=== PATIENT | female | born 1975 | race Caucasian/White ===

== ENCOUNTER 2023-10-17 13:23 | Emergency (ER) | payer OTHER, SELFPAY ==
[2023-10-17] VITALS (14 sets, daily range): BP systolic 153–269; BP diastolic 90–139; PULSE 84–102; RESP 15–20; TEMP 36.6–36.8; O2SAT 93–97; BMI 47.4
--- NOTE | ~2023-10-17 | CT_ITS ---
CT ANGIOGRAM NECK WITH CONTRAST CT ANGIOGRAM BRAIN WITH CONTRAST CLINICAL INFORMATION: Elevated blood pressure. Left eye blurriness. COMPARISON: None available. TECHNIQUE: Test bolus sequences followed by intravenous administration 70 mL of Omnipaque 350. Helical imaging was performed in the axial plane from the thoracic inlet to the skull vertex. Delayed postcontrast imaging of the head was also performed. The data was processed at the sterile processing technologist workstation for generation of MIP sequences. Angled MIPs and volume rendered reformatted images were also generated at an offline 3D workstation under concurrent supervision. Stenoses are assessed in accordance with NASCET criteria unless otherwise indicated. This CT examination was performed using dose optimization techniques as appropriate, variously including the following: *Automated exposure control *Adjustment of mA and/or kV according to patient size (this includes techniques or standardized protocols for targeted exams where dose is matched to indication/reason for exam; i.e. extremities or head) *Use of iterative reconstruction technique FINDINGS: BRAIN: There is mild chronic microangiopathy. [There is no intracranial hemorrhage, hydrocephalus, extra-axial surface collection, midline shift, or other herniation pattern. Benedict to white matter differentiation is diffusely maintained without evidence of an evolved acute territorial infarct. The basilar cisterns are preserved. No significant soft tissue abnormality. No acute osseous abnormality. The paranasal sinuses and the mastoid air cells are well aerated.] CERVICAL SOFT TISSUES AND LUNG APICES: Imaged upper lungs are clear. There is cervical spondylosis. Enlarged heterogeneous multinodular thyroid gland with the largest nodule within the left thyroid lobe possibly measuring up to 2 cm in size which can be further assessed with thyroid ultrasound. NECK CTA: [There is a classic 3 vessel configuration of the aortic arch. Proximal arch vessels are non-stenotic. The left vertebral artery is dominant. No significant ostial stenosis is visualized on either side. Both vertebral arteries are widely patent throughout their extracranial cervical course. The common carotid arteries are widely patent. Indeterminate age arterial dissection involving the left internal carotid artery at the C1-C2 level with an associated small 2 mm pseudoaneurysm. The true lumen remains widely patent. BRAIN CTA: [There is normal opacification of major intracranial arteries. No focal flow-limiting stenosis nor discrete proximal large artery occlusion. No aneurysm. Timing of the contrast bolus allows assessment of the major dural venous sinuses, which all opacify normally] CT/CT angio head neck IMPRESSION: - Indeterminate age arterial dissection involving the left cervical internal carotid artery at the C1-C2 level with an associated small 2 mm pseudoaneurysm. The true lumen remains widely patent. T1/T2 fat-suppressed imaging of the neck could be obtained as clinically indicated. - No acute intracranial findings. Mild chronic microangiopathy. No large vessel occlusions intracranially. - Enlarged heterogeneous multinodular thyroid gland with the largest nodule within the left thyroid lobe possibly measuring up to 2 cm in size which can be further assessed with thyroid ultrasound.
--- NOTE | 2023-10-17 14:07 | ED.EYEPROB ---
HPI - Eye Problem General Chief complaint: Eye Problems Stated complaint: l eye issue Time Seen by Provider: 10/17/23 14:54 History of Present Illness HPI Narrative: The patient is a 48-year-old woman without significant past medical history who has been having problems with vision in her left eye for about 3 weeks. She was seeing some occasional flashing in her vision as well. She feels the vision is less good and that I but not terrible. She arranged a telemedicine visit and was advised to go to an urgent care. She went to an urgent care and was advised to see an eye doctor. Today she went to [facility] [place] where there was concern for papillema and she was referred to the emergency room. She has had some intermittent headaches but says this is not unusual for her. On arrival here she was found to be hypertensive. She says that she has had high blood pressure readings in the past but never as high as today. There has been no chest pain, shortness of breath, fever, sweats, chills. The patient is a former smoker. She has not smoked for many years. The patient used to live in [place]. She has lived in this area for about a year and a half. She does not have a primary care doctor. She says that she has had some high blood pressure readings in the past but has never been formally diagnosed with hypertension and she has never been prescribed medications for high blood pressure. She reports she was hospitalized about 6 or 7 years ago for a case of necrotizing fasciitis to her abdominal skin. She said that she had had a small skin abscess that unexpectedly progressed to necrotizing fasciitis Related Data Allergies Allergy/AdvReac Type Severity Reaction Status Date / Time No Known Allergies Allergy Verified 10/17/23 14:16 Review of Systems Review of Systems: Yes all other systems are reviewed and are negative [facility] Social History Social History Smoked in Last 30 Days: No Use of substances other than those prescribed or required for medical reasons: No Advance Directives: No Patient : No Physical Exam Vital Signs: Vital Signs: Last Vital Signs Temp 98.2 F 10/17/23 19:45 Pulse 94 10/17/23 20:29 Resp 16 10/17/23 20:29 BP 181/100 H 10/17/23 20:29 Pulse Ox 93 10/17/23 20:29 O2 Del Method Room Air 10/17/23 20:29 BMI result Body Mass Index 47.4 Const: Other: The patient is awake, alert, pleasant, cheerful, not in obvious distress. HEENT: Other: The face is symmetrical. ?Mucous membranes moist. Eyes: Other: Pupils are round equal and reactive to light, extraocular movements are intact, visual herron are intact to confrontation. The vision in her right eye is 20/50. The revision in her left eye is 20/40. Neck: Other: No JVD. No swelling. Resp: Effort & Inspection: normal respiratory effort Auscultation: clear to auscultation bilaterally Cardio: Rate: regular rate Rhythm: regular rhythm Heart sounds: S1 normal heart sound present and S2 normal heart sound present Neuro: Other: The patient is awake, alert, appropriate. Demeanor is nontoxic. Eye movements are intact. Visual herron are intact to confrontation. Face is symmetrical. Speech is clear. Extremities have normal strength and coordination. Gait is normal. Extrem: Other: No peripheral edema Course Course Course Narrative: This is an RME: Additional HPI, ROS, PE not included below will be deferred to primary provider. This is a [id number], with no known medical problems, presenting to the emergency department with complaints of left eye blurriness x 3 days, intermittent headaches. She went to the eye doctor at [facility] where she had papilloedema in her left eye and was sent here for further evaluation. Blood pressure 237/135, repeat on right arm to 37/133. Brought patient back to main emergency department given hypertensive emergency. Plan: Labs, CTA head and neck Medications Administered Generic Name Dose Route Start Last Admin Trade Name Freq PRN Reason Stop Dose Admin Heparin Sodium/Sodium Chloride 25,000 unit in 250 mls @ 0 mls/hr 10/17/23 18:15 10/17/23 19:08 Heparin Sodium,Porcine/1/2ns IVCONT 8.38 units/kg/hr .Q0M JOSH 10 mls/hr Administration Protocol Per Protocol Nicardipine HCl 25 mg/ Sodium 260 mls @ 0 mls/hr 10/17/23 18:30 10/17/23 19:33 Chloride IVCONT 7.5 mg/hr .Q0M JOSH 78 mls/hr Titration Protocol Per Protocol Discontinued Medications Generic Name Dose Route Start Last Admin Trade Name Freq PRN Reason Stop Dose Admin Atorvastatin Calcium 80 mg 10/17/23 18:00 10/17/23 19:10 Atorvastatin Calcium 80 Mg Tablet PO 10/17/23 18:01 80 mg ONCE ONE Administration Iohexol 70 ml 10/17/23 16:25 10/17/23 16:25 Iohexol 350 Mg/Ml 75 Ml Infus..Btl IV 10/17/23 16:26 70 ml ONCE ONE Administration Labetalol HCl 10 mg 10/17/23 16:24 10/17/23 16:32 Labetalol Hcl 100 Mg/20 Ml Vial IVPUSH 10/17/23 16:25 10 mg ONCE ONE Administration Labetalol HCl 10 mg 10/17/23 17:21 10/17/23 17:33 Labetalol Hcl 100 Mg/20 Ml Vial IVPUSH 10/17/23 17:22 10 mg ONCE ONE Administration Medical Decision Making Medical Decision Making [facility] Narrative: Patient is an ordinarily healthy 48-year-old woman who has had left eye symptoms for 2-3 weeks. Today she was seen at an optometry office and was found to have papilledema of the left eye and was referred to the emergency room. Here in the emergency room the patient clinically looks very well although she has significantly elevated blood pressures. Dr. Vuong of Ophthalmology was able to see the patient and confirm the presence of decreased vision in the left eye, disc edema, and red desaturation. He further said there was no obvious afferent pupillary defect. He did see a small flame hemorrhage. He considered the patient at risk for idiopathic intracranial hypertension and recommended neuroimaging to exclude a tumor followed by a spinal tap at some point in the next couple of days to assess intracranial pressure. The patient will be signed out to the oncoming emergency physician at change of shift. -I received sign-out from my colleague Dr. Hogan -patient's current blood pressure is 269/138, patient denies chest pain or shortness of breath, no headache, other than the visual disturbance that she has had for days, no changes. -patient was given a dose of labetalol 10 mg IV, patient's blood pressure dropped to 207/111 -patient receiving a 2nd dose of labetalol 10 mg. At this time, patient has received a total of 20 mg IV -I discussed the CTA scan with Dr Rizzo from [facility]. 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 Stallworth from vascular surgery. Has no history of trauma. Dissection likely secondary to chronic very high blood pressure, patient will need heparin and formal anticoagulation afterwards -we are still having trouble controlling the patient's blood pressure. Despite 20 mg of IV labetalol, patient is still significantly hypertensive, patient's blood pressure 220 systolic -It is very unlikely that any other BP meds will help to control the patient's blood pressure. I discussed the patient with Dr. Alvarez and we'll start nicardipine drip and pt will need ICU care. -also, I discussed the patient with Dr. Stallworth again, it would be best to transfer the patient to a tertiary care center where interventional Neurology is available -we tried transferring the patient to our local hospitals in [place]. However, all are closed for ICU transfers, including [facility] and [facility]. -patient was accepted by Dr. Bucio from the intensive care unit at [facility] in [facility] -patient has heparin running, Cardene at 7.5 milligrams/hour, current blood pressure 181/100, heart rate 94, oxygen saturation 93% on room air. Other than the blurry vision that has been present for 5 days, patient does not have any new symptoms including chest pain headache or shortness of breath. -patient will likely need a lumbar puncture as well which we could not do since the patient was not stable enough due to the high blood pressure -a CD has been burned with the patient's imaging -patient and are agreeable with the transfer -patient's nurse will call report, patient will be transferred via ATLS Differential Diagnosis Differential Diagnoses: The differential diagnosis associated with the presentation includes (Papilledema, CVA, carotid artery dissection, hypertensive emergency) Admission/Observation Consideration of admission/observation: Escalation of care including admission/observation considered Consult Healthcare Provider Management of the patient was discussed with: Hospitalist and Core Fitter Lab Data [facility] Lab Attestation statement: I reviewed the patient's lab results. 10/17/23 15:01 10/17/23 15:01 Labs: Lab Results 10/17/23 10/17/23 Range/Units 15:01 16:37 WBC 8.8 (4.8-10.8) X10*3/uL RBC 4.88 (4.20-5.50) X10*6/uL Hgb 9.9 L (12.0-16.0) g/dl Hct 34.0 L (37.0-47.0) % MCV 69.7 L (80.0-98.0) fL MCH 20.3 L (27.0-33.0) pg MCHC 29.1 L (31.0-35.0) g/dl RDW 18.9 H (11.0-16.0) % Plt Count 214 (160-400) X10*3/uL MPV Not Reportable Immature Gran % (Auto) 0.3 (0.0-0.4) % Neut % (Auto) 67.2 (45-73) % Lymph % (Auto) 21.7 (20-40) % Mayes % (Auto) 6.5 (2-11) % Eos % (Auto) 3.4 (0-4) % Baso % (Auto) 0.9 (0-2) % Lymph # (Auto) 1.9 (1.2-4.9) X10*3/uL Mayes # (Auto) 0.6 (0.1-1.2) X10*3/uL Eos # (Auto) 0.3 (0.0-0.4) X10*3/uL Baso # (Auto) 0.1 (0.0-0.2) X10*3/uL Abs Immat Gran (auto) 0.03 (0.00-0.03) X10*3/uL Absolute Neuts (auto) 5.9 (2.0-8.3) x10*3/uL Absolute Nucleated RBC 0.000 (0.0-0.012) X10*3/uL Nucleated RBC % (auto) 0.0 (0.0-0.2) /100WBC Smear Tech's Comments VERIFIED PT 11.4 (11.1-13.3) SEC INR 0.9 (0.9-1.1) APTT 27.9 (26.0-36.4) SEC Sodium 142 (135-145) mmol/L Potassium 3.4 (3.3-5.1) mmol/L Chloride 108 (96-108) mmol/L Carbon Dioxide 26 (22-29) mmol/L Anion Gap 11 L (12-20) BUN 15 (9-16) mg/dL Creatinine 0.88 (0.5-1.4) mg/dL Estim Creat Clear Calc 93.0 Estimated GFR > 60 Random Glucose 114 (60-115) mg/dL Calcium 9.5 (8.4-10.2) mg/dL Total Bilirubin 0.3 (0.0-1.0) mg/dL Direct Bilirubin 0.2 (0.0-0.5) mg/dL AST 16 (5-31) U/L ALT 16 (0-31) U/L Alkaline Phosphatase 91 (39-117) U/L Troponin I High Sens 6.4 (<3.5-17.0) ng/L B-Natriuretic Peptide 39 (<100) pg/mL Total Protein 7.3 (6.5-8.0) g/dL Albumin 4.1 (3.5-5.0) g/dL Radiology Impression Discussion of test interpretation with radiology: I have reviewed the radiologist's reading. Radiologist Impression: BRAIN: There is mild chronic microangiopathy. [There is no intracranial hemorrhage, hydrocephalus, extra-axial surface collection, midline shift, or other herniation pattern. Benedict to white matter differentiation is diffusely maintained without evidence of an evolved acute territorial infarct. The basilar cisterns are preserved. No significant soft tissue abnormality. No acute osseous abnormality. The paranasal sinuses and the mastoid air cells are well aerated.] CERVICAL SOFT TISSUES AND LUNG APICES: Imaged upper lungs are clear. There is cervical spondylosis. Enlarged heterogeneous multinodular thyroid gland with the largest nodule within the left thyroid lobe possibly measuring up to 2 cm in size which can be further assessed with thyroid ultrasound. NECK CTA: [There is a classic 3 vessel configuration of the aortic arch. Proximal arch vessels are non-stenotic. The left vertebral artery is dominant. No significant ostial stenosis is visualized on either side. Both vertebral arteries are widely patent throughout their extracranial cervical course. The common carotid arteries are widely patent. Indeterminate age arterial dissection involving the left internal carotid artery at the C1-C2 level with an associated small 2 mm pseudoaneurysm. The true lumen remains widely patent. BRAIN CTA: [There is normal opacification of major intracranial arteries. No focal flow-limiting stenosis nor discrete proximal large artery occlusion. No aneurysm. Timing of the contrast bolus allows assessment of the major dural venous sinuses, which all opacify normally] CT/CT angio head neck IMPRESSION: - Indeterminate age arterial dissection involving the left cervical internal carotid artery at the C1-C2 level with an associated small 2 mm pseudoaneurysm. The true lumen remains widely patent. T1/T2 fat-suppressed imaging of the neck could be obtained as clinically indicated. - No acute intracranial findings. Mild chronic microangiopathy. No large vessel occlusions intracranially. - Enlarged heterogeneous multinodular thyroid gland with the largest nodule within the left thyroid lobe possibly measuring up to 2 cm in size which can be further assessed with thyroid ultrasound. Critical Care Time Critical Care Time Critical Care Time: Yes Total Critical Care Time: 120 Attestation: I have personally provided critical care time. Time includes review of lab data, radiology results, discussion with consultants, and monitoring for potential decompensation. Intervention performed as documented. Discharge Plan Discharge Clinical Impression: Papilledema of left eye, Carotid artery dissection, Hypertensive emergency Patient Disposition: [facility] Transfer Details: [facility], ICU, Dr. Bucio
[2023-10-17 15:11] LABS: Basophils Absolute Auto 0.1 X10*3/uL (0.0-0.2); Basophils Percent Auto 0.9 % (0-2); Eosinophils Absolute Auto 0.3 X10*3/uL (0.0-0.4); Eosinophils Percent Auto 3.4 % (0-4); Hemoglobin 9.9 g/dl (12.0-16.0); Imm Gran Abs Auto 0.03 X10*3/uL (0.00-0.03); Imm Gran Pct Auto 0.3 % (0.0-0.4); Lymphocytes Absolute Auto 1.9 X10*3/uL (1.2-4.9); Lymphocytes Percent Auto 21.7 % (20-40); MANUAL DIFF FLAG SCAN; Mean Corpuscular HGB Conc 29.1 g/dl (31.0-35.0); Mean Corpuscular Hemoglobin 20.3 pg (27.0-33.0); Mean Corpuscular Volume 69.7 fL (80.0-98.0); Monocytes Absolute Auto 0.6 X10*3/uL (0.1-1.2); Monocytes Percent Auto 6.5 % (2-11); Neutrophils Absolute Auto 5.9 x10*3/uL (2.0-8.3); Neutrophils Percent Auto 67.2 % (45-73); Red Blood Count 4.88 X10*6/uL (4.20-5.50); Red Cell Distribution Width 18.9 % (11.0-16.0); SCAN SMEAR FLAG 1
[2023-10-17 15:12] LABS: PLT ABN DIST 1
[2023-10-17 15:25] LABS: Alanine Aminotransferase 16 U/L (0-31); Albumin Level 4.1 g/dL (3.5-5.0); Alkaline Phosphatase 91 U/L (39-117); Anion Gap 11 (12-20); Aspartate Amino Transferase 16 U/L (5-31); Bilirubin Direct 0.2 mg/dL (0.0-0.5); Bilirubin Total 0.3 mg/dL (0.0-1.0); Blood Urea Nitrogen 15 mg/dL (9-16); Calcium 9.5 mg/dL (8.4-10.2); Carbon Dioxide 26 mmol/L (22-29); Chloride 108 mmol/L (96-108); Estimated Glomerular Filt Rate > 60; Glucose Random 114 mg/dL (60-115); Potassium 3.4 mmol/L (3.3-5.1); Sodium 142 mmol/L (135-145); Total Protein 7.3 g/dL (6.5-8.0)
[2023-10-17 15:37] LABS: Platelet Count 214 X10*3/uL (160-400); SLIDE REVIEW VERIFIED; White Blood Count 8.8 X10*3/uL (4.8-10.8)
[2023-10-17] MEDS: iohexoL 350 MG/ML 75 ML INFUS..BTL 70 ML IV (16:25)
--- NOTE | 2023-10-17 16:26 | PC.NURSE ---
PT SENT OFF UNIT TO OPHTHOMOLOGY OFFICE AT [address] WITH MD CISNEROS pt off unit from 1500 to 1600.
[2023-10-17] MEDS: Labetalol HCL 100 MG/20 ML VIAL 10 MG IVPUSH ×2 (16:32→17:33)
[2023-10-17 16:49] LABS: INTERNATIONAL NORM RATIO 0.9 (0.9-1.1); Prothrombin Time 11.4 SEC (11.1-13.3)
--- NOTE | 2023-10-17 16:51 | ECG_ITS ---
Test Reason : GENERAL MEDICAL Blood Pressure : / mmHG Vent. Rate : 084 BPM Atrial Rate : 084 BPM P-R Int : 212 ms QRS Dur : 096 ms QT Int : 404 ms P-R-T Axes : 054 004 101 degrees QTc Int : 477 ms Sinus rhythm with 1st degree A-V block Moderate voltage criteria for LVH, may be normal variant ( R in aVL , Jaun product ) Anterior infarct , age undetermined ST & T wave abnormality, consider lateral ischemia Abnormal ECG No previous ECGs available Referred By: Tex Hogan Electronically Signed By:Jose Garcia
[2023-10-17 16:52] LABS: Partial Thromboplastin Time 27.9 SEC (26.0-36.4)
[2023-10-17 17:09] LABS: B Type Natriuretic Peptide 39 pg/mL (<100); Troponin-I High Sensitivity 6.4 ng/L (<3.5-17.0)
[2023-10-17] MEDS: niCARdipine HCL 25 MG in 0.9 % Sodium Chloride 250 ML 52 MG IVCONT (19:07)
[2023-10-17] MEDS: Heparin Sodium,Porcine/1/2NS 25,000 UNIT/250 ML IV.SOLN 10 UNIT IVCONT (19:08)
[2023-10-17] MEDS: Atorvastatin Calcium 80 MG TABLET PO (19:10)
--- NOTE | 2023-10-17 19:32 | PC.NURSE ---
Pt ambulatory to restroom with steady gait
--- NOTE | 2023-10-17 20:30 | PC.NURSE ---
Pt updated on POC. Denies any pain or complaints at this time.
--- NOTE | 2023-10-17 20:43 | PC.NURSE ---
Report attempt at this time to [facility]. ict developer not notified of pt yet. Will attempt report at a later time.
--- NOTE | 2023-10-17 21:27 | PC.NURSE ---
Report to Laura ADAME at [facility] in [place].
--- NOTE | 2023-10-17 21:30 | PC.NURSE ---
Report to Stewart slater. Pt to [facility].
== END 2023-10-17 21:35 | disposition short-term general hospital (02) ==
PROVIDERS: Physician Assistant Medical; Emergency Provider Emergency Medicine
DX: H54.62 Unqualified visual loss, left eye, normal vision right eye (principal); H47.10 Unspecified papilledema; I44.0 Atrioventricular block, first degree; I16.0 Hypertensive urgency; Z79.899 Other long term (current) drug therapy
CPT/HCPCS: 36415; 70496; 70498; 80048; 80076; 83880; 84484; 85025; 85610; 85730; 93005; 96365; 96366; 96375; 96376; 99285; J1644; J1920; J2404; Q9967

== ENCOUNTER → 2023-10-17 16:51 | Outpatient (BNV) | payer OTHER, SELFPAY | PROVIDERS: Emergency Provider Emergency Medicine; Visit Provider Internal Medicine Cardiovascular Disease | DX: I44.0 Atrioventricular block, first degree (principal); R94.31 Abnormal electrocardiogram [ECG] [EKG] | CPT/HCPCS: 93010 ==

== ENCOUNTER 2024-05-07 10:28 | Outpatient (REF) | payer OTHER, SELFPAY ==
--- NOTE | ~2024-05-07 | MM_ITS ---
EXAMINATION: MM SCREENING DIGITAL BREAST TOMOSYNTHESIS, BILATERAL CLINICAL INFORMATION: Screening. Asymptomatic. COMPARISON: Mammography: This study is compared with prior exams dating back to 2018. TECHNIQUE: Digital breast tomosynthesis is performed in both the craniocaudal and mediolateral oblique views along with computer-aided detection (CAD). Synthesized 2D images are generated from the tomosynthesis. FINDINGS: There are scattered areas of fibroglandular density (ACR BI-RADS breast composition Category b). There are no significant masses, abnormal calcifications, or other abnormalities. MM/MM tomosynthesis screening BI IMPRESSION: No mammographic evidence of malignancy. ASSESSMENT: BI-RADS BI-RADS 1 - Negative RECOMMENDATION: Routine annual mammography screening. 1 year F/U This examination should not preclude the clinical evaluation of a suspicious palpable abnormality. This patient's information was entered into a reminder system with a target due date for their next mammogram. Electronically signed by: Nory Higuera MD 06/06/2024 02:42 PM EDT
== END 2024-05-07 10:29 | disposition home or self-care (01) ==
LOC: HO.MAMMO 10:28
PROVIDERS: PCP Physician Assistant Medical; Visit Provider Physician Assistant Medical
DX: Z12.31 Encounter for screening mammogram for malignant neoplasm of breast (principal)
CPT/HCPCS: 77063; 77067

== ENCOUNTER → 2024-05-07 10:45 | Outpatient (BNV) | payer OTHER, SELFPAY | PROVIDERS: PCP Physician Assistant Medical; Visit Provider Radiology Diagnostic Radiology | DX: Z12.31 Encounter for screening mammogram for malignant neoplasm of breast (principal) | CPT/HCPCS: 77063; 77067 ==

== ENCOUNTER 2024-05-18 07:56 | Outpatient (AMB) | payer OTHER, SELFPAY ==
--- OUTSIDE RECORDS SUMMARY | 2024-05-18 07:58 | XMS_ITS | Continuity of Care Document ---
Author Organization [facility] Address [address], [address], [address] [place] [id number] Care Team Providers [employer] Artistic Director Name Role Phone Jarvis Regalado Primary Care Physician Encounter [facility] Date(s): 01/01/24 - 01/31/24 [facility] [address], [address] [place] [id number]- us Patient Care team information Care Team Personnel Name: Jarvis Regalado Position: S Outreach Member Role: PCP Address: Address: [facility][note 3] [place] [facility] [address] [place], [place] [id number]
--- NOTE | 2024-05-18 08:11 | MHC.OFFVISWM ---
Intake Visit Reasons: TV Lap Band Removal Consult *SEE COMMENTS* Allergies No Known Allergies Allergy (Verified 05/18/24 08:11) Medication List - Last Reconciled 05/18/24 by Javy Wilson MD lisinopril 40 mg PO DAILY metoprolol succinate ER 25 mg PO BID HPI HPI TV Lap Band Removal Consult *SEE COMMENTS*: Details: Start time: 8.00am, End time: 8.45am ?I spent 40 minutes speaking with the patient on the phone plus an additional 5 minutes reviewing and updating records for a total of 45 minutes HPI Comments Details: Has a lap band. Complains of vomiting at least once a week and pain at the port site with certain activities and bending over Wants to have the band removed PFSH Medical History (Updated 05/18/24 @ 08:37 by Javy Wilson MD) Necrotizing fasciitis DJD (degenerative joint disease) GERD (gastroesophageal reflux disease) Hypertension Morbid obesity Surgical History (Updated 05/18/24 @ 08:39 by Javy Wilson MD) S/P debridement Hx of laparoscopy Previous section Hx of laparoscopic gastric banding Telehealth Telehealth Telehealth Platform: Telephone Location of provider rendering services: practice address Location of patient: address on file Patient Identification confirmed using: Name, : Yes Telehealth method: voice only Patient verbally consented to treatment: Yes Patient verbally consented to billing insurance company: Yes Patient informed of any privacy concerns related to visit: Yes Minutes spent on Phone/Video with Pt.: 45 Assessment & Plan Assessment & Plan (1) Morbid obesity: Code(s): E66.01 - Morbid (severe) obesity due to excess calories Category: Medical Plan: 1. Plan for upper endoscopy this to rule out band erosion. Risks of bleeding and perforation were discussed with the patient and she is in agreement with the plan 2. Plan for laparoscopic band removal on Saturday06/02/24. We discussed the possibility of conversion to open surgery, bleeding, or postop infection. Most likely it will be same day surgery but depending on the intraoperative findings, she may stay overnight. Patient is in agreement with the plan Orders: Orders Vitamin B1 Today R10.9 - Unspecified abdominal pain Lipid Panel Today R10.9 - Unspecified abdominal pain Vitamin B12 Today R10.9 - Unspecified abdominal pain C Reactive Protein Today R10.9 - Unspecified abdominal pain Vitamin D 25-OH Total Today R10.9 - Unspecified abdominal pain IRON PROFILE Today R10.9 - Unspecified abdominal pain Insulin Today R10.9 - Unspecified abdominal pain ECG 12 lead EKG Today R10.9 - Unspecified abdominal pain XR chest 2V Today R10.9 - Unspecified abdominal pain, Z98.84 - Bariatric surgery status Comprehensive Met. Panel Today R10.9 - Unspecified abdominal pain TSH reflex Free T4 Today R10.9 - Unspecified abdominal pain Vitamin A Today R10.9 - Unspecified abdominal pain Hemoglobin A1c Today R10.9 - Unspecified abdominal pain Prothrombin Time INR Today R10.9 - Unspecified abdominal pain Type and Screen Today R10.9 - Unspecified abdominal pain Partial Thromboplastin Time Today R10.9 - Unspecified abdominal pain Complete Blood Count Auto Diff Today R10.9 - Unspecified abdominal pain Ferritin Today R10.9 - Unspecified abdominal pain Zinc Today R10.9 - Unspecified abdominal pain
== END 2024-05-18 08:45 | disposition home or self-care (01) ==
LOC: HO.HBS 07:56
PROVIDERS: PCP Physician Assistant Medical; Visit Provider Surgery
DX: E66.01 Morbid (severe) obesity due to excess calories (principal)
CPT/HCPCS: 99204

== ENCOUNTER → 2024-05-18 07:56 | Outpatient (BNVA) | payer OTHER, SELFPAY | PROVIDERS: PCP Physician Assistant Medical; Visit Provider Surgery ==

== ENCOUNTER 2024-05-19 15:09 | Outpatient (AMB) | payer OTHER, SELFPAY ==
--- NOTE | 2024-05-19 15:18 | A.OFFVIS_ITS ---
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 Patient describes pain to palpation of both wrists. Reports numbness and tingling on the dorsal aspect of the left hand as well as numbness on the thumbs and index fingers. Denies doing physical therapy or trying braes. Denies any prior injuries or surgeries to the hands. Patient has not had EMG done. Allergies No Known Allergies Allergy (Verified 05/19/24 15:19) HPI HPI TAX EXAMINING TECHNICIAN- B/L wrist pain: Details: Linda is a 49 year old left hand dominant woman who presents with complaints of bilateral wrist pain & numbness. Her chief complaint is of numbness in her hands, primarily in the dorsal aspect of her left hand & her bilateral thumbs & index fingers, L>R. Symptoms intermittent but daily, worse with activities. She complains of pain in her bilateral wrists when they are stuck by anything. She denies any prior treatment options. She denies every having a NCS done. She is scheduled for a lap band removal on 06/02/24. [facility] Medical History (Updated 05/19/24 @ 15:55 by Petar Friedman) Necrotizing fasciitis DJD (degenerative joint disease) GERD (gastroesophageal reflux disease) Hypertension Morbid obesity Surgical History (Updated 05/18/24 @ 08:39 by Javy Wilson MD) S/P debridement Hx of laparoscopy Previous section Hx of laparoscopic gastric banding Social History (Updated 05/19/24 @ 15:26 by YULIANA Velazquez) Current occupational status: employed Current occupation: lt handed, human resources Review of Systems Const All systems reviewed & are unremarkable except as noted in HPI and below Physical Exam Vital Signs: BMI result Body Mass Index 45.2 Const General: cooperative, healthy appearing and no acute distress Orientation/consciousness: patient oriented x3 HEENT Head: Yes normocephalic and Yes atraumatic Eyes EOM: EOMs intact bilaterally Resp Effort & Inspection: normal respiratory effort and able to speak in complete sentences Cardio Jugular venous distension: no JVD Skin General skin exam: turgor normal Rashes: no rashes Neuro General: patient oriented x3 Extrem Other: Evaluation of Bilateral Upper Extremity: The patient is alert, oriented, and in no acute distress Neuro: Median, Ulnar, Radial nerves motor and sensory intact and sensation is normal to the tips of all digits No thenar or intrinsic wasting Good APB muscle belly firing and good finger cross Vascular: Cap refill brisk ROM: She can amke a fist and extend all her digits Skin: No lacerations or abrasions. General: No Ecchymosis. No Erythema or evidence of infection. Psych Appearance: grossly normal Affect: normal affect Attitude: cooperative Assessment & Plan Assessment & Plan (1) Bilateral hand numbness: Code(s): R20.0 - Anesthesia of skin Category: Medical Plan Assessment & Plan: 1. Bilateral Hand numbness, L?R In the median nerve distribution Symptoms intermittent, but daily, worse with activities such as using a mouse or driving I educated her about carpal tunnel syndrome I ordered a NCS to assess for peripheral nerve compression She will follow up when completed for review Scribed for Toyin White MD by Petar Friedman, medical assisting instructor, on 05/19/24 at 3:50 PM, EST. Orders: Orders NE nerve conduction velocity 05/19/24 R20.0 - Anesthesia of skin, R20.2 - Paresthesia of skin Coding Level of Care Code New Pt Level 3 (44265) Diagnoses Bilateral hand numbness R20.0
[2024-05-19 15:19] VITALS: BMI 45.2
== END 2024-05-19 15:57 | disposition home or self-care (01) ==
PROVIDERS: Visit Provider Orthopaedic Surgery
DX: M25.531 Pain in right wrist (principal); M25.532 Pain in left wrist; R20.0 Anesthesia of skin
CPT/HCPCS: 99203

== ENCOUNTER → 2024-05-19 15:09 | Outpatient (BNVA) | payer OTHER, SELFPAY | PROVIDERS: Visit Provider Orthopaedic Surgery ==

== ENCOUNTER 2024-05-21 08:09 | Day surgery (SDC) | payer OTHER, SELFPAY ==
--- NOTE | 2024-05-19 08:40 | P.CONAN_ITS ---
Documented by User: Dimple Rainey NP 05/19/24 08:40 HPI - Anesthesia Eval Consult details Narrative: 49yo F for Upper Endoscopy PMFSH Active Problems Active Problems: All Active Problems Hx of laparoscopic gastric banding (Acute) Abdominal pain (Acute) Vomiting (Acute) DJD (degenerative joint disease) (Acute) GERD (gastroesophageal reflux disease) (Acute) Hypertension (Acute) Morbid obesity (Acute) Past Medical History Medical History Necrotizing fasciitis DJD (degenerative joint disease) GERD (gastroesophageal reflux disease) Hypertension Morbid obesity Surgical History Surgical History Hx of tubal ligation S/P debridement Hx of laparoscopy Previous section Hx of laparoscopic gastric banding Social History Social History Are you a primary insurance healthcare consultant to a significant other at home: No Do you presently have visiting nurse or other home services: No Patient Tobacco Use Status: Former Tobacco user Have you been hit, kicked, punched, or otherwise hurt by someone within the past year? If so, by whom?: No Are you DNR?: No Advance Directives: No Advance Directives Information Provided: Yes Nutrition Risks: No Nutritional Risk Current occupational status: employed Current occupation: lt handed, human resources Meds Allergies Allergy/AdvReac Type Severity Reaction Status Date / Time No Known Allergies Allergy Verified 05/21/24 08:15 Home Medications ?Medication ?Instructions ?Recorded ?Confirmed ?Last Taken ?Type lisinopril 40 mg tablet 40 mg PO DAILY 05/18/24 05/21/24 05/20/24 History metoprolol succinate 25 mg 25 mg PO BID 05/18/24 05/21/24 05/20/24 History tablet,extended release 24 hr Assessment and Plan Assessment Anesthesia Assessment: Chart Reviewed Documented by User: Padma Casey MD 05/21/24 09:40 PMFSH Active Problems Active Problems: All Active Problems Hx of laparoscopic gastric banding (Acute) Abdominal pain (Acute) Vomiting (Acute) DJD (degenerative joint disease) (Acute) GERD (gastroesophageal reflux disease) (Acute) Hypertension (Acute) Morbid obesity (Acute) Denies JOE Past Medical History Medical History Necrotizing fasciitis DJD (degenerative joint disease) GERD (gastroesophageal reflux disease) Hypertension Morbid obesity Family History Family history of problems with anesthesia: No Surgical History Surgical History Hx of tubal ligation S/P debridement Hx of laparoscopy Previous section Hx of laparoscopic gastric banding History of Problems with Anesthesia: No Social History Social History Are you a primary insurance healthcare consultant to a significant other at home: No Do you presently have visiting nurse or other home services: No Patient Tobacco Use Status: Former Tobacco user Have you been hit, kicked, punched, or otherwise hurt by someone within the past year? If so, by whom?: No Are you DNR?: No Advance Directives: No Advance Directives Information Provided: Yes Nutrition Risks: No Nutritional Risk Current occupational status: employed Current occupation: lt handed, human resources Meds Allergies Allergy/AdvReac Type Severity Reaction Status Date / Time No Known Allergies Allergy Verified 05/21/24 08:15 Home Medications ?Medication ?Instructions ?Recorded ?Confirmed ?Last Taken ?Type lisinopril 40 mg tablet 40 mg PO DAILY 05/18/24 05/21/24 05/20/24 History metoprolol succinate 25 mg 25 mg PO BID 05/18/24 05/21/24 05/20/24 History tablet,extended release 24 hr Exam Height,Weight and Vital Signs: Height 5 ft 3 in Weight 114.577 kg Vital Signs Temp Pulse Resp BP Pulse Ox O2 Del Method 05/21/24 09:02 98.0 F 81 18 167/96 H 97 Room Air Airway Mallampati Class: II TM Dist: >3cm Neck ROM: Full Loose/Missing/Broken Teeth: No (Denies broken, loose, missing teeth) Heart: RRR Lungs: CTAB Assessment and Plan Assessment Anesthesia Assessment: Anesthesia Plan Discussed and Chart Reviewed Final Anesthetic Review Family History of Problems with Anesthesia: No History of Problems with Anesthesia: No NPO: Yes ASA Class: III Final Preanesthetic Review: No Changes in Pt Med Stat, Meds/Allgs Chart Reviewed, Consent Obtained/Reviewed and Anes Risks/Benef Reviewed Patient Risk: Intermediate Procedure Risk: Low Assessment/Block/Sedation in SS: Assess/Block/Sedation-SS Anesthetic Plan Anesthetic Plan: TIVA Disposition: Standard PACU
[2024-05-21] VITALS (8 sets, daily range): BP systolic 167–212; BP diastolic 91–104; PULSE 63–83; RESP 14–18; TEMP 36.1–36.7; O2SAT 96–99; BMI 44.7
--- NOTE | 2024-05-21 | ECG_ITS ---
Test Reason : ?ST depression Blood Pressure : / mmHG Vent. Rate : 079 BPM Atrial Rate : 079 BPM P-R Int : 200 ms QRS Dur : 096 ms QT Int : 418 ms P-R-T Axes : 051 002 126 degrees QTc Int : 479 ms Normal sinus rhythm Left ventricular hypertrophy with repolarization abnormality ( R in aVL , [place] product ) Abnormal ECG When compared with ECG of 17-OCT-2023 17:46, No significant change was found Referred By: Padma Casey Electronically Signed By:DLIIP EMANUEL
[2024-05-21] MEDS: Lactated Ringers 1,000 ML 100 ML IVCONT (08:33)
--- NOTE | 2024-05-21 10:53 | P.HPSUR_ITS ---
Pre-Procedural Eval Section A - 24 Hr Update-Section A only Date of Service: 05/21/24 The patient is an INPATIENT: No The patient has been examined within 24 hours of the surgical procedure. The History & Physical has been completed within 30 days and I have reviewed it.: Yes Section B - Complete if H&P > 30 days Chief Complaint: Bariatric surgery status Relevant Family History (Specify if Yes): No Relevant Social History: None Present Medications: None Medical History: No relevant PMH History of Previous Operations: Relevant previous surgery/procedure and date(s) (Lap gastric band ) Allergies: Allergies Allergy/AdvReac Type Severity Reaction Status Date / Time No Known Allergies Allergy Verified 05/21/24 08:15 Review of Systems Sugical H&P ROS: Yes, Specify: Gastrointestinal (abdominal pain) Exam Surgical H&P Exam: Normal: HEENT, Normal: Heart, Normal: Lungs, Normal: Extremities, Normal: Abdomen, Normal: Skin and Normal: Neurological Plan Diagnosis/Plan: Unchanged (EGD to rule out band erosion. Risks of bleeding and perforation were discussed with the patient and she is in agreement with the ziyad n.) I have reviewed the history and physical and performed a pertinent physical examination on my patient. No changes have occurred unless specified. Time Spent With Patient Time: Total time managing care of this patient today ____ minutes.
--- NOTE | 2024-05-21 10:56 | PM.OP ---
Brief Operative Note Date of Service: 05/21/24 Pre-op diagnosis: Abdominal pain Post-op diagnosis: same (& slipped gastric band) Procedure: PREOPERATIVE DIAGNOSIS: Abdominal pain, s/p lap band POSTOPERATIVE DIAGNOSIS: ?Same as above. Gastric band slippage PROCEDURE: [id number] with biopsies Surgeon: ?Dillon Wilson M.D.. Ph.D. Drug Enforcement Agent: None ? Anesthesia: IV sedation Estimated blood loss: ?Minimal FINDINGS AND PROCEDURE: ? OPERATIVE INDICATIONS: ?The patient is a 49 year old female known to me who underwent a laparoscopic gastric band elsewhere 21 years ago. The patient had poor weight loss so far and has been complaining of abdominal pain. Based on this information I recommended an upper endoscopy to evaluate the patient's symptoms. Risks and complications of the surgery were discussed with the patient in advance particularly the possibility of perforation or bleeding that may require surgical intervention. The patient understood the risks and was in agreement with the plan. ? PROCEDURE: After informed consent was obtained by the patient, the patient was ?transferred to the Operating Room and was placed in the supine position.? After successful induction of IV sedation, a mouth block was inserted and the patient was placed in the left lateral decubitus position. An upper endoscopy was performed next, the oropharynx and esophagus appeared within the normal limits. There was no hiatal hernia. The z-line was regular.? The stomach was entered and it appeared to be of normal size. There was no band erosion, ?gastritis and no ulcer. The band however has slipped and has migrated distally in the stomach creating a much larger pouch with some food retention. The scope was advanced into the duodenum which appeared to be normal as well. Retroflexion was performed and again no band erosion was seen. One biopsy was obtained from the antrum and the gastric pouch proximal to the band. Two additional biopsies were obtained from the GE junction and 2 additional biopsies from the esophagus. No bleeding was noted from any of the biopsy sites. At that point the duodenum and the stomach were decompressed and the scope was withdrawn from the patient's mouth. The patient was awaken and was transferred in stable condition to the Recovery Room for further care. I was present and performed all steps of the procedure. There were no residents to assist with this case. Dillon Wilson M.D., Ph.D. Surgeon: Javy Wilson MD Anesthesia: MAC Was an Drug Enforcement Agent used for this Procedure?: No Estimated blood loss (mL): 0 IV fluids (mL): 400 Urine output (mL): 0 (No Lopez to record output) Pathology: other (1) GE junction x2 2) Distal esophagus x2 3) Proximal stomach x1 4) Distal antrum x1) Condition: stable Disposition: PACU
== END 2024-05-21 13:35 | disposition home or self-care (01) ==
PROVIDERS: PCP Physician Assistant Medical; Visit Provider Surgery
PROC: 0DJ08ZZ Inspection of Upper Intestinal Tract, Via Natural or Artificial Opening Endoscopic (ICD-10-PCS; CPT 43235; principal; 2024-05-21 10:30)
DX: K95.09 Other complications of gastric band procedure (principal); R10.9 Unspecified abdominal pain; R11.10 Vomiting, unspecified; Z98.84 Bariatric surgery status; I10 Essential (primary) hypertension; K21.9 Gastro-esophageal reflux disease without esophagitis; E66.01 Morbid (severe) obesity due to excess calories; Z79.899 Other long term (current) drug therapy; Z98.890 Other specified postprocedural states; Z87.891 Personal history of nicotine dependence
CPT/HCPCS: 43239; 88305; 88313; 88342; 93005; J1596; J1805; J1920; J2704

== ENCOUNTER → 2024-05-21 08:09 | Outpatient (BNV) | payer OTHER, SELFPAY | PROVIDERS: PCP Physician Assistant Medical; Visit Provider Surgery | DX: R10.9 Unspecified abdominal pain (principal); K95.09 Other complications of gastric band procedure | CPT/HCPCS: 43239 ==

== ENCOUNTER 2024-05-29 14:08 | Outpatient (REF) | payer OTHER, SELFPAY ==
--- NOTE | 2024-05-29 14:11 | EMG_ITS ---
Chief complaint: Bilateral hand numbness, left worse than right Reason for referral: Evaluate for Carpal Tunnel Syndrome Referred by: Dr. Barrett Procedure done: Bilateral upper extremities NCS/EMG Precautions and/or limitations: None The limb temperature was monitored continuously and remained between 32-36 degrees C during the performance of the NCS. Nerve Conduction Studies Anti Sensory Summary Table ?Stim Site NR Onset (ms) Norm Onset (ms) Peak (ms) Norm Peak (ms) O-P Amp (?V) Norm O-P Amp Site1 Site2 Delta-0 (ms) Dist (cm) Ravi (m/s) Norm Ravi (m/s) Left Median Anti Sensory (2nd Digit) Wrist ? 2.6 3.6 <3.6 31.3 >10 Wrist 2nd Digit 2.6 14.0 54 Right Median Anti Sensory (2nd Digit) Wrist ? 2.8 3.3 <3.6 45.9 >10 Wrist 2nd Digit 2.8 14.0 50 Left Ulnar Anti Sensory (5th Digit) Wrist ? 2.2 2.8 <3.7 21.7 >15.0 Wrist 5th Digit 2.2 14.0 64 Right Ulnar Anti Sensory (5th Digit) Wrist ? 1.8 2.8 <3.7 15.1 >15.0 Wrist 5th Digit 1.8 14.0 78 Motor Summary Table ?Stim Site NR Onset (ms) Norm Onset (ms) O-P Amp (mV) Norm O-P Amp iAmp (mV) Amp (1st) (%) Site1 Site2 Delta-0 (ms) Dist (cm) Ravi (m/s) Norm Ravi (m/s) Left Median Motor (Abd Poll Brev) Wrist ? 4.7 <3.9 7.7 >4.5 10.0 100.0 Elbow Wrist 3.0 18.5 62 >45 Elbow ? 7.7 6.8 9.0 88.3 Right Median Motor (Abd Poll Brev) Wrist ? 3.8 <3.9 9.7 >4.5 11.8 100.0 Elbow Wrist 3.2 18.5 58 >45 Elbow ? 7.0 9.8 12.1 101.0 Left Ulnar Motor (Abd Dig Minimi) Wrist ? 2.7 <3.0 7.4 >5 9.4 100.0 B Elbow Wrist 2.5 17.0 68 >45 B Elbow ? 5.2 7.9 9.8 106.8 A Elbow B Elbow 1.4 10.0 71 >45 A Elbow ? 6.6 8.4 10.7 113.5 Right Ulnar Motor (Abd Dig Minimi) Wrist ? 2.7 <3.0 9.1 >5 12.9 100.0 B Elbow Wrist 3.0 18.0 60 >45 B Elbow ? 5.7 8.9 12.6 97.8 A Elbow B Elbow 1.0 10.0 100 >45 A Elbow ? 6.7 9.4 13.1 103.3 Comparison Summary Table ?Stim Site NR Peak (ms) Norm Peak (ms) P-T Amp (?V) Site1 Site2 Delta-P (ms) Norm Delta (ms) Left Median/Radial Dig I Comparison (Digit 1 - 10cm) Median ? 3.2 <2.9 34.4 Median Radial 0.9 Radial ? 2.3 <2.8 13.8 Right Median/Radial Dig I Comparison (Digit 1 - 10cm) Median ? 3.3 <2.9 111.4 Median Radial 0.8 Radial ? 2.5 <2.8 5.4 EMG ?Side Muscle Nerve Root Ins Act Fibs Psw Amp Dur Poly Recrt Int Pat Comment Right 1stDorInt Ulnar C8-T1 Nml Nml Nml Nml Nml 0 Nml Complete Right FlexCarRad Median C6-7 Nml Nml Nml Nml Nml 0 Nml Complete Right Biceps Musculocut C5-6 Nml Nml Nml Nml Nml 0 Nml Complete Right Triceps Radial C6-7-8 Nml Nml Nml Nml Nml 0 Nml Complete Right Deltoid Axillary C5-6 Nml Nml Nml Nml Nml 0 Nml Complete Left 1stDorInt Ulnar C8-T1 Nml Nml Nml Nml Nml 0 Nml Complete Left FlexCarRad Median C6-7 Nml Nml Nml Nml Nml 0 Nml Complete Left Biceps Musculocut C5-6 Nml Nml Nml Nml Nml 0 Nml Complete Left Triceps Radial C6-7-8 Nml Nml Nml Nml Nml 0 Nml Complete Left Deltoid Axillary C5-6 Nml Nml Nml Nml Nml 0 Nml Complete FINDINGS: Left median motor nerve showed prolonged distal latency, normal amplitude and normal conduction velocity. Significant interlatency difference between median radial sensory nerves, bilateral. All other nerves tested were within normal. Concentric needle EMG was performed in selected muscles of the upper extremity. Study did not reveal signs of electric abnormalities as shown in the table above. IMPRESSION: 1. This is an abnormal study. 2. There is electrodiagnostic evidence for left mild-moderate and right borderline median neuropathy at the wrist, consistent with carpal tunnel syndrome. 3. There is no electrodiagnostic evidence for ulnar neuropathy, brachial plexopathy, or cervical radiculopathy. Thank you for your kind referral. Latasha Grover MD, ANTONY Board Certified, [place] [employer] and [employer] (ABPMR) Board Certified, [place] Board of Electrodiagnostic Medicine (ABEM) CODIN [id number] x 2 MTDD
== END 2024-05-29 14:09 | disposition home or self-care (01) ==
LOC: HO.NEURO 14:08
PROVIDERS: Visit Provider Orthopaedic Surgery
DX: R20.0 Anesthesia of skin (principal); R20.2 Paresthesia of skin
CPT/HCPCS: 95886; 95911

== ENCOUNTER → 2024-05-29 14:11 | Outpatient (BNV) | payer OTHER, SELFPAY | PROVIDERS: Visit Provider Physical Medicine & Rehabilitation | DX: G56.03 Carpal tunnel syndrome, bilateral upper limbs (principal) | CPT/HCPCS: 95886; 95911 ==

== ENCOUNTER 2024-06-02 09:51 | Day surgery (SDC) | payer OTHER, SELFPAY ==
[2024-05-29 13:23] VITALS: BMI 44.7
[2024-06-01 08:43] LABS: MANUAL DIFF FLAG NO
[2024-06-01 09:38] LABS: Prothrombin Time 11.6 SEC (11.1-13.3)
[2024-06-01 09:39] LABS: Estimated Average Glucose 108 mg/dL; Hemoglobin A1c % 5.4 % (<6.0)
[2024-06-01 09:41] LABS: Partial Thromboplastin Time 27.3 SEC (26.0-36.8)
[2024-06-01 09:42] LABS: Basophils Absolute Auto 0.1 X10*3/uL (0.0-0.2); Basophils Percent Auto 0.7 % (0-2); Eosinophils Absolute Auto 0.3 X10*3/uL (0.0-0.4); Eosinophils Percent Auto 4.4 % (0-4); Hematocrit 36.1 % (37.0-47.0); Hemoglobin 11.1 g/dl (12.0-16.0); Imm Gran Abs Auto 0.04 X10*3/uL (0.00-0.03); Imm Gran Pct Auto 0.6 % (0.0-0.4); Lymphocytes Absolute Auto 1.3 X10*3/uL (1.2-4.9); Lymphocytes Percent Auto 18.9 % (20-40); Mean Corpuscular HGB Conc 30.7 g/dl (31.0-35.0); Mean Corpuscular Hemoglobin 21.9 pg (27.0-33.0); Mean Corpuscular Volume 71.3 fL (80.0-98.0); Monocytes Absolute Auto 0.4 X10*3/uL (0.1-1.2); Monocytes Percent Auto 5.9 % (2-11); Neutrophils Absolute Auto 4.7 x10*3/uL (2.0-8.3); Neutrophils Percent Auto 69.5 % (45-73); Platelet Count 209 X10*3/uL (160-400); Red Blood Count 5.06 X10*6/uL (4.20-5.50); White Blood Count 6.8 X10*3/uL (4.8-10.8)
[2024-06-01 10:15] LABS: Alanine Aminotransferase 20 U/L (0-31); Albumin Level 3.9 g/dL (3.5-5.0); Alkaline Phosphatase 83 U/L (39-117); Anion Gap 13 (12-20); Aspartate Amino Transferase 15 U/L (5-31); Bilirubin Total 0.3 mg/dL (0.0-1.0); Blood Urea Nitrogen 10 mg/dL (9-16); C Reactive Protein 0.31 mg/dL (< or = 0.50); Calcium 9.3 mg/dL (8.4-10.2); Carbon Dioxide 23 mmol/L (22-29); Chloride 108 mmol/L (96-108); Cholesterol 151 mg/dL (<200); Creatinine Clr Calc Pharmacy 97.8; Estimated Glomerular Filt Rate > 60; Glucose Random 108 mg/dL (60-115); HDL Cholesterol 54 mg/dL (>40); Iron 30 mcg/dL (30-160); LDL Cholesterol Calculated 80 mg/dL (<100); Percent Iron Saturation 8 % (15-50); Potassium 4.1 mmol/L (3.3-5.1); Sodium 140 mmol/L (135-145); Total Iron Binding Capacity 363 mcg/dL (228-428); Triglycerides 86 mg/dL (<150); Unsaturated Iron Binding 333 ug/dL
[2024-06-01 10:22] LABS: Ferritin 14 ng/mL (10-250); Insulin 17 uU/mL (2-29); Vitamin D 25-OH Total 22.5 ng/mL (>30)
[2024-06-01 10:37] LABS: Vitamin B12 353 pg/mL (200-900)
[2024-06-02] VITALS (10 sets, daily range): BP systolic 173–204; BP diastolic 85–127; PULSE 46–74; RESP 14–18; TEMP 36.1–36.8; O2SAT 94–100
--- NOTE | 2024-06-02 12:00 | HO.ANESPROP2 ---
Documented by User: Dimple Rainey NP 06/01/24 09:44 HPI - Anesthesia Eval Consult details Narrative: 49yo F for Lap Band Removal Laparosopic 09/2023 [facility] [place] [facility] with htn crisis and possible L ICA dissection. Transfer to [facility]. Repeat imaging shows less likely dissection. Per pt, HTN has been controlled since. Case reviewed with Dr. Ly. SILVA Active Problems Active Problems: All Active Problems Bilateral hand numbness (Acute) Abdominal pain (Acute) Vomiting (Acute) Hx of laparoscopic gastric banding (Acute) DJD (degenerative joint disease) (Acute) GERD (gastroesophageal reflux disease) (Acute) Hypertension (Acute) Morbid obesity (Acute) Past Medical History Medical History (Updated 05/29/24 @ 14:40 by Nandini Jorge RN) Carotid artery dissection Necrotizing fasciitis DJD (degenerative joint disease) GERD (gastroesophageal reflux disease) Hypertension Morbid obesity Family History Family history of problems with anesthesia: No Surgical History Surgical History (Updated 05/29/24 @ 13:18 by Nandini Jorge RN) History of esophagogastroduodenoscopy (EGD) Hx of tubal ligation S/P debridement Hx of laparoscopy Previous section Hx of laparoscopic gastric banding History of Problems with Anesthesia: No Social History Social History Are you a primary coronary care unit nurse to a significant other at home: No Do you presently have visiting nurse or other home services: No Patient Tobacco Use Status: Former Tobacco user Tobacco use type: Cigarette Have you been hit, kicked, punched, or otherwise hurt by someone within the past year? If so, by whom?: No Are you DNR?: No Advance Directives: No Advance Directives Information Provided: Yes Advance Directives on File: No Nutrition Risks: No Nutritional Risk Current occupational status: employed Current occupation: lt handed, human resources Meds Allergies Allergy/AdvReac Type Severity Reaction Status Date / Time No Known Allergies Allergy Verified 05/21/24 08:15 Home Medications ?Medication ?Instructions ?Recorded ?Confirmed ?Last Taken ?Type lisinopril 40 mg tablet 40 mg PO DAILY 05/18/24 05/29/24 06/02/24 History metoprolol succinate 25 mg 25 mg PO BID 05/18/24 05/29/24 06/02/24 History tablet,extended release 24 hr ferrous sulfate 325 mg (65 mg 325 mg PO DAILY 06/02/24 06/02/24 05/31/24 History iron) tablet Exam Height,Weight and Vital Signs: Height 5 ft 3 in Weight 114.577 kg Pertinent Lab Results Pertinent Lab Results: Lab Results 06/01/24 Range/Units 08:42 WBC 6.8 (4.8-10.8) X10*3/uL RBC 5.06 (4.20-5.50) X10*6/uL Hgb 11.1 L (12.0-16.0) g/dl Hct 36.1 L (37.0-47.0) % MCV 71.3 L (80.0-98.0) fL MCH 21.9 L (27.0-33.0) pg MCHC 30.7 L (31.0-35.0) g/dl RDW 17.0 H (11.0-16.0) % Plt Count 209 (160-400) X10*3/uL MPV Not Reportable Immature Gran % (Auto) 0.6 H (0.0-0.4) % Neut % (Auto) 69.5 (45-73) % Lymph % (Auto) 18.9 L (20-40) % Dauphin % (Auto) 5.9 (2-11) % Eos % (Auto) 4.4 H (0-4) % Baso % (Auto) 0.7 (0-2) % Lymph # (Auto) 1.3 (1.2-4.9) X10*3/uL [place]hin # (Auto) 0.4 (0.1-1.2) X10*3/uL Eos # (Auto) 0.3 (0.0-0.4) X10*3/uL Baso # (Auto) 0.1 (0.0-0.2) X10*3/uL Abs Immat Gran (auto) 0.04 H (0.00-0.03) X10*3/uL Absolute Neuts (auto) 4.7 (2.0-8.3) x10*3/uL Absolute Nucleated RBC 0.000 (0.0-0.012) X10*3/uL Nucleated RBC % (auto) 0.0 (0.0-0.2) /100WBC PT 11.6 (11.1-13.3) SEC INR 1.0 (0.9-1.1) APTT 27.3 (26.0-36.8) SEC Estimat Average Glucose 108 mg/dL Hemoglobin A1c % 5.4 (<6.0) % Narrative Narrative: EKG 04/2024 Vent. Rate : 079 BPM Atrial Rate : 079 BPM P-R Int : 200 ms QRS Dur : 096 ms QT Int : 418 ms P-R-T Axes : 051 002 126 degrees QTc Int : 479 ms Normal sinus rhythm Left ventricular hypertrophy with repolarization abnormality ( R in aVL , Crook product ) Abnormal ECG When compared with ECG of 17-OCT-2023 17:46, No significant change was found ECHO 09/2023 LV nml in size. LV sys function is nml. EF 67%. No WMA. Abnormal relaxation Severe conc LVH RV nml in size. RV sys function nml No significant abnormal valves Assessment and Plan Assessment Anesthesia Assessment: Chart Reviewed Final Anesthetic Review Family History of Problems with Anesthesia: No History of Problems with Anesthesia: No Documented by User: Magdalena Guthrie DO 06/02/24 12:10 HPI - Anesthesia Eval Consult details Narrative: 49yo F for Lap Band Removal Laparosopic 09/2023 [facility] [place] [facility] with htn crisis and possible L ICA dissection. Transfer to [facility]. Repeat imaging shows less likely dissection. Per pt, HTN has been controlled since. Case reviewed with Dr. Guthrie. 06/02/24: patient seen on DOS. Reports home SBP between 140-190. Completely asymptomatic when pressure gets too high. [facility] Past Medical History Medical History (Updated 05/29/24 @ 14:40 by Nandini Jorge RN) Carotid artery dissection Necrotizing fasciitis DJD (degenerative joint disease) GERD (gastroesophageal reflux disease) Hypertension Morbid obesity Family History Family history of problems with anesthesia: No Surgical History Surgical History (Updated 05/29/24 @ 13:18 by Nandini Jorge RN) History of esophagogastroduodenoscopy (EGD) Hx of tubal ligation S/P debridement Hx of laparoscopy Previous section Hx of laparoscopic gastric banding History of Problems with Anesthesia: No Social History Social History Are you a primary coronary care unit nurse to a significant other at home: No Do you presently have visiting nurse or other home services: No Patient Tobacco Use Status: Former Tobacco user Tobacco use type: Cigarette Have you been hit, kicked, punched, or otherwise hurt by someone within the past year? If so, by whom?: No Are you DNR?: No Advance Directives: No Advance Directives Information Provided: Yes Advance Directives on File: No Nutrition Risks: No Nutritional Risk Current occupational status: employed Current occupation: lt handed, human resources Meds Allergies Allergy/AdvReac Type Severity Reaction Status Date / Time No Known Allergies Allergy Verified 05/21/24 08:15 Home Medications ?Medication ?Instructions ?Recorded ?Confirmed ?Last Taken ?Type lisinopril 40 mg tablet 40 mg PO DAILY 05/18/24 05/29/24 06/02/24 History metoprolol succinate 25 mg 25 mg PO BID 05/18/24 05/29/24 06/02/24 History tablet,extended release 24 hr ferrous sulfate 325 mg (65 mg 325 mg PO DAILY 06/02/24 06/02/24 05/31/24 History iron) tablet Exam Exam Date and Time: 06/02/24 1200 Height,Weight and Vital Signs: Height 5 ft 3 in Weight 114.577 kg Height 5 ft 3 in Weight 114.577 kg Vital Signs Temperature 97 F 06/02/24 11:58 Pulse Rate 74 06/02/24 11:58 Respiratory Rate 16 06/02/24 11:58 Blood Pressure 174/85 H 06/02/24 11:58 Pulse Oximetry 95 06/02/24 11:58 Oxygen Delivery Method Room Air 06/02/24 11:58 Temperature 97 F 06/02/24 11:58 Pulse Rate 46 L 06/02/24 12:06 Respiratory Rate 16 06/02/24 11:58 Blood Pressure 174/85 H 06/02/24 11:58 Pulse Oximetry 95 06/02/24 11:58 Oxygen Delivery Method Room Air 06/02/24 11:58 Airway Mallampati Class: II TM Dist: >3cm Neck ROM: Full Loose/Missing/Broken Teeth: No (patient denies any loose or broken teeth) Heart: S1S2 Lungs: CTAB Assessment and Plan Assessment Anesthesia Assessment: Anesthesia Plan Discussed and Chart Reviewed Final Anesthetic Review Family History of Problems with Anesthesia: No History of Problems with Anesthesia: No NPO: Yes ASA Class: III Final Preanesthetic Review: No Changes in Pt Med Stat, Meds/Allgs Chart Reviewed, Consent Obtained/Reviewed and Anes Risks/Benef Reviewed Patient Risk: Intermediate Procedure Risk: Intermediate Anesthetic Plan Anesthetic Plan: GA and Agree w/ Assess. and Plan Disposition: Standard PACU
--- NOTE | 2024-06-02 12:08 | PC.NURSE ---
MD ESCOBEDO AWARE OF PATIENTS HEART RATE. ASYMPTOMATIC. PATIENT IS IN METOPROLOL.
--- NOTE | 2024-06-02 12:19 | MHC.SHP ---
Pre-Procedural Eval Section A - 24 Hr Update-Section A only Date of Service: 06/02/24 The patient is an INPATIENT: No The patient has been examined within 24 hours of the surgical procedure. The History & Physical has been completed within 30 days and I have reviewed it.: Yes Section B - Complete if H&P > 30 days Chief Complaint: Other complications of gastric band procedure Relevant Family History (Specify if Yes): No Relevant Social History: None Present Medications: None Medical History: No relevant PMH History of Previous Operations: Relevant previous surgery/procedure and date(s) (Laparoscopic gastric band ) Allergies: Allergies Allergy/AdvReac Type Severity Reaction Status Date / Time No Known Allergies Allergy Verified 05/21/24 08:15 Review of Systems Sugical H&P ROS: Negative: Constitution, Cardiovascular, Respiratory, Neurological, Psychiatric, Hem-Onc, Allergic/Immunologic, Gastrointestinal, Genitourinary, Musculoskeletal, Integumentary, Endocrine and Eyes/Ears/Nose/Throat Exam Surgical H&P Exam: Normal: HEENT, Normal: Heart, Normal: Lungs, Normal: Extremities, Normal: Abdomen, Normal: Skin and Normal: Neurological Plan Diagnosis/Plan: Unchanged I have reviewed the history and physical and performed a pertinent physical examination on my patient. No changes have occurred unless specified. Time Spent With Patient Time: Total time managing care of this patient today ____ minutes.
--- NOTE | 2024-06-02 12:23 | P.BOP_ITS ---
Brief Operative Note Date of Service: 06/02/24 Pre-op diagnosis: Lap band malfunction Post-op diagnosis: same Procedure: PROCEDURE: Esophago-gastroscopy, laparoscopic repair of incarcerated diaphragmatic hernia, laparoscopic lysis of adhesions, laparoscopic sleeve gastrectomy and laparoscopic gastropexy INDICATIONS: This is a 49 year-old female with a BMI of 43.8 kg/m2 and associated comorbid conditions including uncontrolled hypertension, GERD, DJD. The patient complains of dysphagia and pain of the band's port site. The patient was electively scheduled for laparoscopic, possibly open removal of gastric band and accessories. The risks and complications of the procedure were discussed with the patient in advance, particularly the possibility of ; pulmonary embolism; stomach or esophageal injury; bleeding; cardiac, pulmonary, or renal complications.. The patient understood all the risks, and was in agreement to proceed with surgery. DESCRIPTION OF PROCEDURE: After informed consent was obtained from the patient, the patient was given preoperative antibiotics, and was transferred to the operating room. After successful induction of general anesthesia, pneumatic compressive devices were placed on both lower extremities. An upper endoscopy was performed next. The oropharynx and esophagus appeared to be within normal limits. There was a small amount of old food over the band. The stomach was entered. Then after all fluid and air were suctioned and the stomach was fully decompressed, the scope was withdrawn and secured in the mid esophagus. The patient was then prepped and draped in the usual sterile manner, and a bdominal access was established at the right upper quadrant with the William technique. A 12 mm blunt port was inserted, and the abdomen was insufflated with CO2 to a pressure of 15 mmHg. Under direct visualization, additional ports were placed, specifically two 5 mm Versi-step ports to the left upper quadrant, and a 5 mm Versi-Step port to the right upper quadrant. 1% lidocaine plan was used to infiltrate all port sites as well as all fascia defects. Following that, the patient was placed in a steep reverse Trendelenburg position. An additional 5 mm port was placed to the right flank for the Mediflex retractor that was used to retract the left lobe of the liver. There were adhesions in the abdomen from previous lap band involving the stomach and the undersurface of the left lobe of the liver. Those were lysed completely with the ultrasonic device. The patient has a lap gastric band. It was identified and using the Thunderbeat, the capsule was opened and the band was freed from surrounding tissues. Once it was adequately mobile, it was cut and was removed from the William port along with the intra-abdominal portion of the tubing system. ?An upper endoscopy was performed. There was no narrowing at the GE junction. The scope was easily advanced all the way to the pylorus which was clearly visualized. There was no narrowing anywhere. At that point the gastroscope was withdrawn from the patient?s mouth while we were decompressing the bowel and the stomach from any remaining air. An separate transverse incision was made where the band's port was. Using cautery the subcutaneous tissues were divided until the port was identified. This particular port is not secured with sutures but with hooks. The remaining tubing system was delivered first and then slowly the four hooks were detached from the fascia and the port with tubing system were retrieved intact. I closed the fascial defect of the 12 mm port site with a figure of eight #1 Polysorb suture. Then 30cc Ropivacaine plain with 10 mg of Dexamethasone were used to infiltrate the fascial closure as well as all skin incisions. A total of 7ml Zynrelef was applied in the William port. At this point, the abdomen was def lated, all ports were removed under direct vision, and no bleeding was noted from any of the port sites. The skin incisions were irrigated with saline and were closed with 4-0 absorbable monofilament sutures. Steri-Strips and OpSites were used to cover all incisions. The patient was extubated and was transferred in stable condition to the recovery room for further care. I was present and performed all antonio parts of the procedure. Mr Land was the airplane first officer. There were no residents to assist with this case. Dillon Wilson MD, PhD, FACS Surgeon: Javy Wilson MD Anesthesia: GETA, local and other (TAP block and 7ml Zynrelef) Was an Health Information Clerk used for this Procedure?: No Health Information Clerk: Prashant Land Estimated blood loss (mL): 10 IV fluids (mL): 1,000 Urine output (mL): 0 (No Lopez to record output) Pathology: other (Gastric band, tubing system and port) Condition: stable Disposition: PACU
[2024-06-02] MEDS: Lactated Ringers 1,000 ML 100 ML IVCONT (12:26)
[2024-06-02] MEDS: Aprepitant 32 MG/4.4 ML VIAL IVPUSH (12:26)
--- NOTE | 2024-06-02 14:41 | PM.DS ---
DS: Providers Provider Primary care physician: SYLVESTER Frausto DS: Summary Hospital Course Hospital Course: ADMITTING DIAGNOSIS: morbid obesity, refluz, ? DISCHARGE DIAGNOSIS: same, s/p laparoscopic removal of malfunctioning gastric band ? PAST SURGICAL HISTORY: gastric band placement, tubal ligation, cesarian section ? PROCEDURE: upper endoscopy, laparoscopic removal of gastric band ? DISCHARGE SUMMARY: ? History of Present Illness: ? The patient is a?49 year-old woman with a BMI of??45.2 kg/m2 and associated co-morbidities as described above. The patient had extensive work-up, was electively scheduled for laparoscopic, possible open removal of gastric band. Risks and complications of the surgery were discussed with the patient in advance, particularly the possibility of , pulmonary embolism, anastomotic leak, bleeding, bowel injury, GERD, cardiac, renal or pulmonary complications. The patient understood all the risks and was in agreement with the surgical plan. ? Hospital Course: ? The patient underwent an uneventful laparoscopic removal of malfunctioning gastric band on the day of admission. Postoperatively, the patient was transferred to the surgical floor. The patient received IV Acetaminophen and IV dilaudid for pain control. Patient was started on bariatric phase 1 diet POD #0. On postoperative day one, the patient was feeling well without nausea, vomiting, fevers, or tachycardia. The patient had some mild incisional pain and the abdomen was soft. ? On the morning of postoperative day one, the patient was continued on 1 ounce of water or ice every half hour. During the day, the patient did fairly well, having some incisional pain, but able to ambulate adequately and to tolerate liquids well. ? Since the patient is doing well, we decided that the patient was ready to be discharged. The patient was given instructions to follow-up with me next week and to call my office for any fever over 101, persistent abdominal pain, nausea, vomiting, GERD, symptoms of DVT such as calf tenderness, or leg swelling, or pulmonary embolism such as chest pain or shortness of breath. The patient was also instructed to drink 40-60 ounces of liquids per day using the 1-ounce cups. The patient had been given prescriptions for Tylenol for pain, Zofran prn for nausea, and pantoprazole and carafate previously. The patient was encouraged to ambulate and use the incentive spirometer. The patient was allowed to shower, but no baths, and encouraged to stay active at home. All of these instructions were given to the patient personally. All questions were answered and the patient understood all instructions, the instructions were also given to the patient in print. Time Attestation Total time managing care of this patient today: 25 mintues. Discharge Coordination Time (in mins): 25 Quality: Safe Use of Opioids Does Pt have an Active Cancer Diagnosis on the Problem List?: No Quality: Stroke Does the patient have a stroke diagnosis?: No Physical Exam Vital Signs: Vital Signs: Last Vital Signs Temp 97 F 06/02/24 11:58 Pulse 46 L 06/02/24 12:06 Resp 16 06/02/24 11:58 BP 174/85 H 06/02/24 11:58 Pulse Ox 95 06/02/24 11:58 O2 Del Method Room Air 06/02/24 11:58 BMI result Body Mass Index 44.7 DS: Data Data Completed and Pending Pending studies at discharge: Pending at discharge 06/02/24 14:06 Surgical [PTH] Routine Discharge Plan Discharge Patient Disposition: Home, Self-Care Referrals: Jarvis Alejandro PA [Primary Care Provider] - 1 Week Discharge Medications: No Action hydrochlorothiazide 25 mg tablet 25 mg PO DAILY Qty: 90 0RF ferrous sulfate 325 mg (65 mg iron) tablet 325 mg PO DAILY lisinopril 40 mg tablet 40 mg PO DAILY metoprolol succinate 25 mg tablet extended release 24 hr 25 mg PO BID Discharge Orders: Discharge Order (Routine); Ordered 06/02/24 Ordered By: Javy Wilson Activity Restrictions/Additional Instructions: 1) Stay on a clear liquid diet today. We will communicate tonight to give you diet directions for tomorrow. 2, May shower 3) Leave dressings in place. They will be removed at your office appointment. Remove them only if they are getting wet under the plastic cover with showers, if the look dirty from wound drainage or they make you feel itchy. 4) Avoid heavy lifting for 3 weeks. Wear the abdominal binder at all times until seen at the office except from showers 5) Take Tylenol 500mg every 4 hours, around the clock for the next 3-4 days. If pain has improved you may slowly reduce its frequency 6) Avoid aspirin, Motrin, Aleve, Advil, Naproxyn, Ibuprofen for 2 weeks 7) Buy today the Celebrate Rebuild protein shakes and Celebrate protein bars from the hospital's gift shop 8) Call Dr. Wilson at [phone] for fever >101F, persistent nausea, vomiting, abdominal pain, shortness of breath, calf pain. Print Language: Citizen [place]
[2024-06-04 02:13] LABS: Vitamin A 28 mcg/dL (38-98)
[2024-06-04 05:13] LABS: Zinc 71 mcg/dL (60-130)
[2024-06-05 12:38] LABS: Vitamin B1 18 nmol/L (8-30)
== END 2024-06-02 16:14 | disposition home or self-care (01) ==
PROVIDERS: PCP Physician Assistant Medical; Visit Provider Surgery
PROC: (CPT 43774; principal; 2024-06-02 12:50)
DX: K95.09 Other complications of gastric band procedure (principal); R10.9 Unspecified abdominal pain; K66.0 Peritoneal adhesions (postprocedural) (postinfection); R13.10 Dysphagia, unspecified; I10 Essential (primary) hypertension; K21.9 Gastro-esophageal reflux disease without esophagitis; E66.01 Morbid (severe) obesity due to excess calories; Z68.41 Body mass index [BMI] 40.0-44.9, adult; Z79.899 Other long term (current) drug therapy; Z98.84 Bariatric surgery status; Z98.890 Other specified postprocedural states; Z87.891 Personal history of nicotine dependence
CPT/HCPCS: 43774; 36415; 80053; 80061; 82306; 82607; 82728; 83036; 83525; 83540; 84425; 84443; 84590; 84630; 85025; 85610; 85730; 86140; 86850; 86900; 86901; 88300; C9088; C9145; J0131; J0690; J1100; J2250; J2371; J2405; J2704; J2795; J3010

== ENCOUNTER → 2024-06-02 09:51 | Outpatient (BNV) | payer OTHER, SELFPAY | PROVIDERS: PCP Physician Assistant Medical; Visit Provider Surgery | DX: K95.09 Other complications of gastric band procedure (principal) | CPT/HCPCS: 43774 ==

== ENCOUNTER 2024-06-11 10:38 | Outpatient (AMB) | payer OTHER, SELFPAY ==
--- NOTE | 2024-06-11 10:43 | A.OFFVIS_ITS ---
VS Expanded 06/11/24 11:09 BP 140/80 H Blood Pressure Location Rt brachial Blood Pressure Position Sitting Pulse 73 Pulse Source Pulse Oximeter Temp 97.1 F Temperature Source Temporal Artery Scan Pulse Oximetry 97 Oxygen Delivery Method Room Air Height 5 ft 3 in Weight 238 lb 9.6 oz BMI 42.3 Body Fat % 45.4 Body Fat Mass 108.2 Fat Free Mass 130.2 Visceral Fat Rating 14.0 Body Water % 38.9 Body Water Mass 92.8 Muscle Mass/Score 123.6 Basal Metabolic Rate/Score 1,828 Intake Visit Reasons: (OV) s/p Lap Band Removal 06/02/24 Allergies No Known Allergies Allergy (Verified 05/21/24 08:15) HPI Comments Details: 49-year-old female returns to the office today in follow-up. She is 9 days status post lap band removal on 06/02/2024. Overall, she is doing well. She has been using the [email or web address] negar, utilizing [place] [employer] 2 scoops x2 per day as well as some soft foods such as scrambled eggs. She has no complaints of pain. She has moved her bowels. [facility] Medical History (Updated 05/29/24 @ 14:40 by Nandini Jorge RN) Carotid artery dissection Necrotizing fasciitis DJD (degenerative joint disease) GERD (gastroesophageal reflux disease) Hypertension Morbid obesity Surgical History (Updated 06/11/24 @ 10:54 by Brenda Mojica CMA) History of removal of laparoscopic gastric banding device History of esophagogastroduodenoscopy (EGD) Hx of tubal ligation S/P debridement Hx of laparoscopy Previous section Hx of laparoscopic gastric banding Social History Are you a primary care transitions manager to a significant other at home: No Do you presently have visiting nurse or other home services: No Patient Tobacco Use Status: Former Tobacco user Tobacco use type: Cigarette Current occupational status: employed Current occupation: lt handed, human resources Physical Exam GI Inspection: Yes incision (Clean, dry, intact.) Assessment & Plan Assessment & Plan (1) History of removal of laparoscopic gastric banding device: Code(s): Z98.84 - Bariatric surgery status Category: Surgical Plan: Patient is doing fairly well. She has been encouraged to start using her treadmill at home. She will continue to follow the right BMI application. She states that her insurance does not cover bariatric surgery but she is not 100% sure and she will look into this. We will have her follow-up in the office in a couple of weeks.
[2024-06-11 11:09] VITALS: BP 140/80; PULSE 73; TEMP 36.2; O2SAT 97; BMI 42.3
== END 2024-06-11 11:29 | disposition home or self-care (01) ==
PROVIDERS: PCP Physician Assistant Medical; Visit Provider Physician Assistant Surgical
DX: Z98.84 Bariatric surgery status (principal)
CPT/HCPCS: 99024

== ENCOUNTER → 2024-06-11 10:38 | Outpatient (BNVA) | payer OTHER, SELFPAY | PROVIDERS: PCP Physician Assistant Medical; Visit Provider Physician Assistant Surgical ==

== ENCOUNTER 2024-07-09 15:31 | Outpatient (AMB) | payer OTHER, SELFPAY ==
--- NOTE | 2024-07-09 15:33 | MHC.OFFVISWM ---
VS Expanded 07/09/24 15:44 BP 218/118 H Blood Pressure Location Lt radial Blood Pressure Position Sitting Pulse 98 Pulse Source Pulse Oximeter Temp 98.0 F Temperature Source Temporal Artery Scan Pulse Oximetry 99 Oxygen Delivery Method Room Air Height 5 ft 3 in Weight 247 lb 12.8 oz BMI 43.9 Body Fat % 44.4 Body Fat Mass 110.0 Fat Free Mass 137.8 Visceral Fat Rating 14.0 Body Water % 39.6 Body Water Mass 98.2 Muscle Mass/Score 131.0 Basal Metabolic Rate/Score 1,927 Intake Visit Reasons: (OV) s/p Lap Band Removal 06/02/24 Intake Note: first bp on R arm was 233/124 second bp was on left wrist 231/132 and third bp was done 20min later and was 219/118. pt stated she did not take her bp medication because she forgot. pt stated she had no symptoms. PA is aware and advised pt to go to the ER. Allergies No Known Allergies Allergy (Verified 07/09/24 15:36) HPI Comments Details: Patient is a pleasant 49-year-old female who returns to the office today in follow-up. She is approximately 1 month post lap band removal on 06/02/2024. She states that she had initially tried the right BMI negar but stopped doing this. She has been eating breads and pastas and protein, not dieting. She is not exercise. She did not take her blood pressure medications this morning and she had accelerated hypertension in the office, initially reading to 31/132 in her left wrist in 233/124 in her right wrist. She states that she had forgotten to take her blood pressure medication this morning and had ?a lot of things going on today?. Additionally, she states that when she had been checking her blood pressure at home while taking her medications blood pressure readings were 120-150 over 70s to 80s. She denies any complaints of blurry vision, headache, chest pain, shortness of breath. She was advised to go to the emergency room. [facility] [place] Medical History (Updated 05/29/24 @ 14:40 by Nandini Jorge RN) Carotid artery dissection Necrotizing fasciitis DJD (degenerative joint disease) GERD (gastroesophageal reflux disease) Hypertension Morbid obesity Surgical History History of removal of laparoscopic gastric banding device History of esophagogastroduodenoscopy (EGD) Hx of tubal ligation S/P debridement Hx of laparoscopy Previous section Hx of laparoscopic gastric banding Social History Are you a primary hearing care practitioner to a significant other at home: No Do you presently have visiting nurse or other home services: No Patient Tobacco Use Status: Former Tobacco user Tobacco use type: Cigarette Current occupational status: employed Current occupation: lt handed, human resources Physical Exam Const General: healthy appearing and no acute distress Resp Effort & Inspection: normal respiratory effort GI Inspection: Yes incision (Clean, dry, intact. Scab noted to the right lateral incision) Assessment & Plan Assessment & Plan (1) History of removal of laparoscopic gastric banding device: Code(s): Z98.84 - Bariatric surgery status Category: Surgical Plan: Discussed the importance of following the meal plan and exercise plan. She states that she is going to look into whether her insurance is going to cover bariatric surgery or not. We will have her follow-up in the office in approximately 1 month. (2) Hypertension: Code(s): I10 - Essential (primary) hypertension Category: Medical Plan: Given the accelerated hypertension, repeat blood pressure was 219/118. She remained asymptomatic however was encouraged and advised to go to the emergency room for accelerated hypertension. She did take all 3 of her blood pressure medications upon arrival to our office.
[2024-07-09 15:44] VITALS: BP 218/118; PULSE 98; TEMP 36.7; O2SAT 99; BMI 43.9
== END 2024-07-09 16:00 | disposition home or self-care (01) ==
PROVIDERS: PCP Physician Assistant Medical; Visit Provider Physician Assistant Surgical
DX: Z98.84 Bariatric surgery status (principal); I10 Essential (primary) hypertension
CPT/HCPCS: 99024

== ENCOUNTER → 2024-07-09 15:31 | Outpatient (BNVA) | payer OTHER, SELFPAY | PROVIDERS: PCP Physician Assistant Medical; Visit Provider Physician Assistant Surgical ==

== ENCOUNTER 2024-08-13 15:06 | Outpatient (AMB) | payer OTHER, SELFPAY ==
--- NOTE | 2024-08-13 09:21 | A.OFFVIS_ITS ---
VS Expanded 08/13/24 09:22 Height 5 ft 3 in Intake Visit Reasons: (TV) s/p Lap Band Removal 06/02/24 Allergies No Known Allergies Allergy (Verified 07/09/24 15:36) HPI Comments Details: Patient is a pleasant 49-year-old female who returns to the office today in follow-up. She is approximately 2 months post lap band removal on 06/02/2024. She states that she had initially tried the right BMI negar but stopped doing this. She has been eating breads and pastas and protein, not dieting. She is not exercise. She did not take her blood pressure medications this morning and she had accelerated hypertension in the office, initially reading to 31/132 in her left wrist in 233/124 in her right wrist. She states that she had forgotten to take her blood pressure medication this morning and had ?a lot of things going on today?. Additionally, she states that when she had been checking her blood pressure at home while taking her medications blood pressure readings were 120-150 over 70s to 80s. She denies any complaints of blurry vision, headache, chest pain, shortness of breath. She was advised to go to the emergency room [facility] Medical History (Updated 05/29/24 @ 14:40 by Nandini Jorge RN) Carotid artery dissection Necrotizing fasciitis DJD (degenerative joint disease) GERD (gastroesophageal reflux disease) Hypertension Morbid obesity Surgical History History of removal of laparoscopic gastric banding device History of esophagogastroduodenoscopy (EGD) Hx of tubal ligation S/P debridement Hx of laparoscopy Previous section Hx of laparoscopic gastric banding Social History Are you a primary intensive care anaesthetist to a significant other at home: No Do you presently have visiting nurse or other home services: No Patient Tobacco Use Status: Former Tobacco user Tobacco use type: Cigarette Current occupational status: employed Current occupation: lt handed, human resources
[2024-08-13 09:22] VITALS: BMI 44.6
--- NOTE | 2024-08-13 09:55 | A.OFFVIS_ITS ---
VS Expanded 08/13/24 09:22 Height 5 ft 3 in Weight 252 lb BMI 44.6 Intake Visit Reasons: (TV) s/p Lap Band Removal 06/02/24 Affirmative Action Specialist Required: No Allergies No Known Allergies Allergy (Verified 07/09/24 15:36) Medication List - Last Reconciled 08/13/24 by SYLVESTER Charles hydrochlorothiazide 25 mg PO DAILY lisinopril 40 mg PO DAILY metoprolol succinate ER 25 mg PO BID HPI Comments Details: Patient is a pleasant 49-year-old female who returns to the office today in follow-up. She is approximately 2 months post lap band removal on 06/02/2024. She states that she had initially tried the right BMI negar but stopped doing this. Weight at her last visit approximately 1 month ago was 247 pounds. Weight today is 252 lb. She denies any concerns. She states surgery is covered under her insurance plan. She states she has been taking her BP at home 150s-190/70-80. Not following meal plan on line. States her goal is to decrease BP, improve exercise tolerance and achieve a healthy weight of 140 pounds. States she is willing to work hard to do it. States she is interested in having bariatric surgery. Meal plan: cereal-param puffs w 1 % milk or (5/7 days) egg sausage and cheese breakfast bowl +/- snack atkins protein bar shepards pie or chili dinner-steak or burger, no veggies atkins bar or popcorn Drinkin oz water, no soda or juice 1 day per week candy or chips Exercise plan: walking on treadmill, 3 d per week, 15 min, not tracking calories outside walking 2 days per week, [address] [facility] Medical History (Updated 05/29/24 @ 14:40 by Nandini Jorge RN) Carotid artery dissection Necrotizing fasciitis DJD (degenerative joint disease) GERD (gastroesophageal reflux disease) Hypertension Morbid obesity Surgical History History of removal of laparoscopic gastric banding device History of esophagogastroduodenoscopy (EGD) Hx of tubal ligation S/P debridement Hx of laparoscopy Previous section Hx of laparoscopic gastric banding Social History (Reviewed 07/09/24 @ 15:37 by JANN Alejandro Are you a primary manager primary care to a significant other at home: No Do you presently have visiting nurse or other home services: No Patient Tobacco Use Status: Former Tobacco user Tobacco use type: Cigarette Current occupational status: employed Current occupation: lt handed, human resources Telehealth Telehealth Telehealth Platform: Telephone Location of provider rendering services: practice address Location of patient: address on file Patient Identification confirmed using: Name, : Yes Telehealth method: voice only Patient verbally consented to treatment: Yes Patient verbally consented to billing insurance company: Yes Patient informed of any privacy concerns related to visit: Yes Minutes spent on Phone/Video with Pt.: 15 Assessment & Plan Assessment & Plan (1) Morbid obesity: Code(s): E66.01 - Morbid (severe) obesity due to excess calories Category: Medical Plan: patient is a proximally 2 months post gastric band removal. She does wish to proceed with possible bariatric surgery. Discussed the critical importance of following a meal plan and exercise plan consistently. Discussed the principles of purpose fullness, discipline, consistency, time. She states that she will go back into the right BMI negar and create a new meal plan. Discussed the importance of exercising regularly including daily treadmill use. While she states she can only do 15 minutes per day at this time, encouraged her to do it every day and increase by a couple of minutes every other day. Tracking her calories, for a goal of 300 per day. We will refer her to Dr. Wilson for continued preoperative weight loss planning
== END 2024-08-13 15:06 | disposition home or self-care (01) ==
LOC: HO.HBS 15:06
PROVIDERS: PCP Physician Assistant Medical; Visit Provider Physician Assistant Surgical
DX: E66.01 Morbid (severe) obesity due to excess calories (principal)
CPT/HCPCS: 99024

== ENCOUNTER → 2024-08-13 15:06 | Outpatient (BNVA) | payer OTHER, SELFPAY | PROVIDERS: PCP Physician Assistant Medical; Visit Provider Physician Assistant Surgical | DX: E66.01 Morbid (severe) obesity due to excess calories (principal) ==